=== PATIENT | female | born 1990 | race Caucasian/White ===

== ENCOUNTER 2016-07-26 03:05 | Emergency (ER) | payer MEDICAID ==
[2016-07-26 03:17] VITALS: BP 142/81; PULSE 116; TEMP 98.1; BMI 26.2
[2016-07-26] MEDS ORDERED: CLINDAMYCIN 150 MG CAP PO ONE (03:18)
[2016-07-26] MEDS ORDERED: HYDROCODONE 5 MG/ACETAMIN 325 MG TAB PO ONE (03:18)
--- NOTE | 2016-07-26 03:18 | EDPRACDOC ---
- General Information Stated Complaint: LT KNEE PAIN/SWELLING Time Seen by Provider: 07/26/16 03:15 Home Medications: Home Medications Clindamycin [Cleocin] 150 mg PO QID #30 capsule 07/26/16 Hydrocodone Bit/Acetaminophen [Lortab 5/325] 1 tab PO Q6H PRN #14 tab 07/26/16 Allergies/Adverse Reactions: Allergies Allergy/AdvReac Type Severity Reaction Status Date / Time No Known Allergies Allergy Verified 06/12/16 11:03 - History of Present Illness HPI: REDNESS TO LEFT KNEE; POSSIBLE SPIDER BITE; MILD AREA OF ERYTHEMA ABOUT THE SIZE OF A QUARTER. Quality: Reports: Red Relevant History of: Reports: None Irritability: Mild Pain Severity: Mild ED Past Medical History - History Reviewed Yes Nurses notes reviewed and agree except as marked - Patient Medical History GI/ History: Denies: Urinary Tract Infection Psychological History: Reports: Depression, Bipolar Disorder, Substance Use Disorder Systemic History: Reports: Anemia. Denies: Cancer Surgical History: Reports: Tonsillectomy/Adnoidectomy (ADNOIDECTOMY) - Family Medical History Reports: Diabetes (Paternal Grandfather and Father), Cancer (GRANDPARENTS), Cardiac Disorders (Father). Denies: Hypertension, Stroke, Respiratory Disorders , Renal Disease, Blood Disorders - Social Medical History Smoking Status: Heavy tobacco smoker (5 or more cigarettes/day or daily pipe/ cigar) Social History: Reports: Substance Use Disorder EDM Review of Systems - Review of Systems ROS Negative Except as Marked: Yes All systems reviewed and were negative except as marked - Physical Exam Constitutional: No apparent distress Oriented to: Time, Person, Place Last recorded Vital Signs: Oxygen Pulse Oxygen Saturation O2 Device Oxygen Flow Rate Fraction of Inspired Oxygen ( FIO2) - Musculoskeletal Back: Normal Extremities: Other (DISTAL TO LEFT PATELLA MILD ERYTHEMA THE SIZE OF A QUARTER.) - Integumentary Skin: Other Lymphatics: Normal - Neurologic Memory Impaired: Normal Motor Function: Normal Cranial Nerve: Normal Cerebellar: Normal - Departure Yes I personally saw and evaluated the patient. Disposition: Home Condition: Good Final Diagnosis: CELLULTIS OF LOWER EXTREMITY Instructions: Cellulitis (ED) Education/Counseling Given To: Patient Education/Counseling Given Regarding: Diagnosis, Treatment, Prognosis Referrals: None,No Provider [Primary Care Provider] - One Week Marques Varela MD [Staff Physician] - One Week Prescriptions: New Clindamycin [Cleocin] 150 mg PO QID #30 capsule Hydrocodone Bit/Acetaminophen [Lortab 5/325] 1 tab PO Q6H PRN #14 tab PRN Reason: Pain
== END 2016-07-26 03:26 | disposition home or self-care (01) ==
LOC: ED 03:05
DX: L03.116 Cellulitis of left lower limb (principal); F17.200 Nicotine dependence, unspecified, uncomplicated
CPT/HCPCS: 99282; J3490